=== PATIENT | male | born 1960 | race Caucasian/White ===

== ENCOUNTER 2016-09-06 09:43 | Inpatient (IN) | payer MEDICAID ==
[~2016-09-06 09:43] MED LIST: BACITRACIN 50,000 UNITS/10 ML SYR IRR ONE; BUPIVACAINE/EPI 0.25% 30 ML SDV ONE; CHLORHEXIDINE GLUC HIBICLENS 118 ML BTL TP ONE; SKIN ADHESIVE (DERMABOND) 1 EACH TP ONE; THROMBIN (RECOMBINANT) 5,000 UNIT VIAL TP ONE; ceFAZolin 2 GM/DEXTROSE 100 ML IV ONE
[2016-09-06] MEDS ORDERED: LIDOCAINE 1% 5 ML SDV ONE (10:50)
[2016-09-06] MEDS ORDERED: CEFAZOLIN 2 GM/DEXTROSE/100 ML BAG IV ONE (10:50)
[2016-09-06] MEDS ORDERED: LR 1,000 ML IV ONE (10:53)
[2016-09-06] MEDS ORDERED: LIDOCAINE 1% 5 ML SDV ID PRN (10:53)
[2016-09-06] MEDS ORDERED: ROCURONIUM 50 MG/5 ML VIAL ONE (11:22)
[2016-09-06] MEDS ORDERED: DEXAMETHASONE 4 MG/ML VIAL ONE ×2 (11:22→11:23)
[2016-09-06] MEDS ORDERED: REMIFENTANIL HCL 1 MG VIAL ONE ×2 (11:22→13:09)
[2016-09-06] MEDS ORDERED: PROPOFOL/EMULSION 500 MG/50 ML BOTTLE IV ONE ×2 (11:22→13:09)
[2016-09-06] MEDS ORDERED: METOCLOPRAMIDE 10 MG/2 ML VIAL ONE (11:23)
[2016-09-06] MEDS ORDERED: LIDOCAINE 2% 100 MG/5 ML SYR IVP ONE (11:25)
[2016-09-06] MEDS ORDERED: MIDAZOLAM 2 MG/2 ML VIAL ONE (11:28)
[2016-09-06] MEDS ORDERED: ONDANSETRON DISINTEGRATING 4 MG TAB PO PRN (15:41)
[2016-09-06] MEDS ORDERED: PROCHLORPERAZINE MALEATE 25 MG SUPPR PR PRN (15:41)
[2016-09-06] MEDS ORDERED: POLYETHYLENE GLYCOL 3350 17 GM PKT PO PRN (15:41)
[2016-09-06] MEDS ORDERED: DIAZEPAM 10 MG/2 ML SYR IVP PRN (15:41)
[2016-09-06] MEDS ORDERED: LACTULOSE 20 GM/30 ML UDCUP PO PRN (15:41)
[2016-09-06] MEDS ORDERED: METHOCARBAMOL 750 MG TAB PO PRN (15:41)
[2016-09-06] MEDS ORDERED: ACETAMINOPHEN 325 MG TAB PO PRN (15:41)
[2016-09-06] MEDS ORDERED: diphenhydrAMINE 25 MG CAP PO PRN (15:41)
[2016-09-06] MEDS ORDERED: PROMETHAZINE HCL 25 MG/ML VIAL IVP PRN (15:41)
[2016-09-06] MEDS ORDERED: PROCHLORPERAZINE MALEATE 10 MG TAB PO PRN (15:41)
[2016-09-06] MEDS ORDERED: HYDROCODONE/APAP 10/325 TAB PO PRN (15:41)
[2016-09-06] MEDS ORDERED: DIAZEPAM 5 MG TAB PO PRN (15:41)
[2016-09-06] MEDS ORDERED: MAGNESIUM HYDROXIDE 30 ML UDCUP PO PRN (15:41)
[2016-09-06] MEDS ORDERED: BISACODYL 10 MG SUPP PR PRN (15:41)
[2016-09-06] MEDS ORDERED: ONDANSETRON 4 MG/2 ML VIAL IVP PRN (15:41)
[2016-09-06] MEDS ORDERED: NS W/ 20 KCl/L 1,000 ML IV SCH (15:45)
[2016-09-06] MEDS ORDERED: ONDANSETRON 4 MG/2 ML VIAL ONE ×2 (15:51→15:55)
[2016-09-06] MEDS ORDERED: fentaNYL 100 MCG/2 ML INJ ONE (15:54)
--- NOTE | 2016-09-06 15:54 | POSTOPPROG ---
Post Op Note Date of Operation: 09/06/16 Surgeon: Ashish Soriaon Roll Repairer: Kathie Kim Anesthesiologist: Chen Anesthesia: GET(General Endotracheal) Pre-op Diagnosis: Lumbar stenosis Post-op Diagnosis: same Procedure: L3/4 TLIF with hardware removal L4-S1. Inf/Abcess present in the surg proc area at time of surgery?: No Depth: Organ Space EBL: 300 Drains: Jayme Suero SOAP Progress Note Assessment/Plan: Assessment: Plan: S: Patient waking up in PACU with expected back pain and with nausea. O: VSS: 144/95, po2:100% on NC, Pulse 87 NAD PERRL, EOMI CN II-XII grossly intact BUE/BLE 5/5= Sensation intact to lt touch Incision c/d/i- dressed JPX1- to full suction and functioning A: L3/4 TLIF with hardware removal L4-S1. -Admit to med/surg -optimize pain management -brace to be ordered once up on floor -LSO brace to be worn when up and OOB -Postop x-rays pending -DVT: TEDs, SCDs, Lovenox ok to start 24 hours postop -Please call with any changes in neuro exam 09/06/16 15:51
--- NOTE | 2016-09-06 16:06 | DX ---
Intraoperative Fluoroscopy of the Lumbar Spine Clinical History: 56-year-old male undergoing TLIF at L3-L4. Comparison Study: CT scan of the lumbar spine, dated December 30, 2015. Findings: Dr. Ashish Soriano used 7.68 seconds of fluoroscopy time (exposure dose of 43.21 mGy) during intraoperative fluoroscopy of the lumbar spine. Two spot matrix intraoperative images were acquired, identifying placement of bilateral transpedicular screws at the L3-L4 level and interbody fusion. Th ere is a prominent curvilinear ventral traction spur at the anterior superior L4 centrum. Additionall y, there are two separate 3-D acquired spins were obtained with no images provided. Impression: Intraoperative fluoroscopy during L3-L4 arthrodesis.
[2016-09-06] MEDS ORDERED: PROMETHAZINE HCL 25 MG/ML VIAL ONE (16:23)
[2016-09-06] MEDS: metFORMIN HCL 500 MG TAB PO SCH (18:30)
[2016-09-06] MEDS: oxyCODONE IR 5 MG TAB PO PRN ×2 (19:05→22:54)
[2016-09-06] MEDS: SENNOSIDES/DOCUSATE SODIUM TAB PO SCH (20:18)
[2016-09-06] MEDS: FAMOTIDINE 20 MG TAB PO SCH (20:18)
[2016-09-06] MEDS: morphINE SR 15 MG TAB PO SCH (20:18)
[2016-09-06] MEDS: AMOXICILLIN/CLAVULANATE POT 875/125 MG TAB PO SCH (20:18)
[2016-09-06] MEDS: PREGABALIN 75 MG CAP PO SCH (20:18)
[2016-09-06] MEDS: PRAVASTATIN SODIUM 20 MG TAB PO SCH (20:19)
--- NOTE | 2016-09-06 20:51 | GOP ---
[f rep st] OPERATIVE REPORT DATE OF OPERATION: 09/06/2016 SURGEON: Ashish Soriano MD SODA JERKER: Kathie Kim PA-C ANESTHESIA: General endotracheal. 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 PROCEDURE PERFORMED: 1. Exploration and removal of posterolateral spine hardware L4, L5 and S1. 2. Placement of pedicle screw fixation at L3, and replacement at L4. 3. L3-4 transforaminal lumbar interbody fusion. 4. [place] of local autograft. 5. Use of allograft (bone morphogenic proteins). 6. Interbody cage placement at L3-4. 7. Posterolateral fusion at L3-4. 8. L3 complete laminectomy and medial facetectomy on the left, complete facetectomy on the right. 9. Use of Noosh stereotactic navigation 10. Use of operative microscope FINDINGS: Successful TLIF. SPECIMENS: There were no specimens. ESTIMATED BLOOD LOSS: 350 cc. INDICATIONS: The patient is a 56-year-old man who had a previous L4-S1 fusion in 1990. He presented to clinic with severe bilateral leg pain and signs of neurogenic claudication. A CT myelogram revealed severe stenosis at L3-4 and good fusion mass L4-S1. We therefore scheduled him for an L3-4 TLIF and removal of hardware at the levels below. DESCRIPTION OF PROCEDURE: After informed consent was obtained from the patient , the patient was brought to the operating room, placed in supine position on the operating table. A formal time-out was performed, identifying the patient by name, medical record number, and date of . Preoperative antibiotics were given. Endotracheal tube was placed and general endotracheal anesthesia was smoothly induced. The patient was then turned to the prone position on the Jayme table and all appropriate pressure points were padded and checked. At this point, the low lumbar region was prepped and draped in the normal sterile fashion. The O-arm stereotactic device was brought onto the field and used to perform AP and lateral radiographs, confirming the appropriate level of the incision. The O-arm arm was then moved out of the way and the skin incision was made using a 10 blade. The subcutaneous tissues were dissected using monopolar electrocautery and the plasma blade. The fascia was opened in the midline. The spinous processes were identified and the muscles were taken down laterally. The previous hardware at L4, L5, and S1 was completely exposed. Next, the locking screws were removed, the connectors to the shanita were loosened, the rods were removed bilaterally, and each of the pedicle screws at L4, L5 and S1 were removed completely. At L4 on the left, a Medtronic Solera 6.5 x 45 mm screw was replaced into the screw hole and on the right side a 6.5 x 45 Medtronic Solera screw was placed into the screw hole. At this point, the O- arm was then used to perform a stereotactic spin, showing the appropriate L3-4 level. The screws at L4 bilaterally were completely within the pedicle and in good placement. Next, we identified, using normal anatomic landmarks, the entry points for pedicle screws at L3. The stereotactic navigation was also used to tap with a 5.5-6.5 mm tap and then we placed under direct stereotactic vision 6.5 x 50 mm Solera screws bilaterally at L3. Repeat O-arm scan was obtained, showing the screws were in excellent placement. All the screws were then stimulated and all of them stimulated over the sense of the threshold. At this point, since the screws were placed, the high-speed drill was used to drill down the lamina of L3. Once the lamina was drilled, thin Kerrison punches were used to perform a full laminectomy at L3 bilaterally. There was extensive ligamentum flavum hypertrophy and actually the ligament flavum was completely degenerative in the lateral recess with severe compression laterally and centrally. A complete decompression of the thecal sac was performed at this level. At this point, distraction on the right side of the pedicle screws was placed. Complete facetectomy on the right side at L3-4 was performed and the disk space was identified. At this point, the operating microscope was brought onto the field and the remainder of the procedure was performed under high-power magnification. The nerve root was retracted medially and the disk space was then entered using an 11 blade. Using curette and beth, a complete diskectomy at L3-4 was performed and the cartilaginous endplates were removed. Once the endplates were fully prepared, this space was sized for an 8 x 23 mm Medtronic Elevate cage. This cage was packed with autograft and allograft BMP. Into the disk space, we placed some autograft and another small piece of BMP and pushed that toward the left lateral side. The Elevate cage was then placed and a lateral radiograph was performed, identifying correct placement. The cage was then opened fully to its 12 mm full open size. Again, the lateral radiograph performed confirmed good hardware placement. At this point, the wound was copiously irrigated. The lateral edge of the facet on the left side was drilled down and decorticated and this was covered with autograft and allograft BMP. The 40 mm titanium rods were then placed between the screw heads and locked down with cap screws, which were finally torqued and tightened. At this point, again, the wound was copiously irrigated using bacitracin irrigation. All bleeding was controlled with bipolar electrocautery. A NOÉ drain was placed into the subfascial space. The deep lumbar fascia was then closed using interrupted 0 Vicryl. The superficial fascia was closed using interrupted 0 Vicryl. The deep dermis was closed using interrupted 2-0 Vicryl and the skin was covered with Dermabond. The drain was connected to a sterile drainage system. The patient was turned back into the supine position, where he was extubated. He was transferred to the PACU in stable condition. There were no operative complications. I was scrubbed and present for the entire procedure and performed the procedure myself. FLUIDS REPLACED: Per the Anesthesia record. /[id number]/MODL MTDD
[2016-09-06] MEDS ORDERED: NON-FORMULARY NEW DRUG (Simvastatin [Zocor] 10 MG) PO SCH (21:00)
[2016-09-06] MEDS ORDERED: NON-FORMULARY NEW DRUG (Ranitidine Hcl [Zantac] 150 MG) PO SCH (21:00)
[2016-09-07] MEDS: oxyCODONE IR 5 MG TAB PO PRN ×4 (03:12→16:44)
--- NOTE | 2016-09-07 07:38 | NEUSURGPN ---
Assessment/Plan: A: 56 yo M POD#1 s/p L3/4 TLIF with hardware removal L4-S1. Plan: -PT/OT -Brace to be delivered today, to be worn when OOB -TEDs, SCDs, lovenox -Pain management - cont current regimen -Post op xrays pending -Continue NOÉ drain -[facility] is out -D/w Dr Soriano -Call NS with any issues Subjective: Pt resting in bed, states he is tolerating pain meds better now that he is taking them with food Objective: AAOx3 NAD VSS MAEx4 Motor 5/5 BLE Incision dressed JPx1 +LT Urinary Catheter in Place: No Catheter Insertion Date: 09/06/16 - Physician Discussed Patient with : Bo Neurosurgery Physical Exam - Vitals, I&O, Labs I and O 09/06/16 09/07/16 09/08/16 05:59 05:59 05:59 Intake Total 3200 Output Total 3415 Balance -215 Weight 86.183 kg Intake: Oral (ml) 1650 IV Intake (ml) 1550 Output: Urine (ml) 2525 Catheter 2525 Estimated Blood Loss (ml) 350 Wound Drainage (ml) 540 Left Back Jayme Suero 540 Vital Signs Temp Pulse Resp BP Pulse Ox 36.7 C 63 16 121/79 H 97 09/07/16 04:10 09/07/16 04:10 09/07/16 04:10 09/07/16 04:10 09/07/16 04:10 ICD10 Worksheet Patient Problems: Problems Problem Status Diagnosed Degenerative lumbar disc Acute - ICD10 Problem Qualifiers (1) Degenerative lumbar disc
[2016-09-07] MEDS: FAMOTIDINE 20 MG TAB PO SCH ×2 (08:14→21:43)
[2016-09-07] MEDS: PREGABALIN 75 MG CAP PO SCH ×2 (08:14→21:43)
[2016-09-07] MEDS: LOSARTAN POTASSIUM 50 MG TAB PO SCH (08:15)
[2016-09-07] MEDS: GLIMEPIRIDE 1 MG TAB PO SCH (08:15)
[2016-09-07] MEDS: AMOXICILLIN/CLAVULANATE POT 875/125 MG TAB PO SCH ×2 (08:15→21:44)
[2016-09-07] MEDS: morphINE SR 15 MG TAB PO SCH ×2 (08:15→21:42)
[2016-09-07] MEDS: SENNOSIDES/DOCUSATE SODIUM TAB PO SCH ×2 (08:16→21:43)
[2016-09-07] MEDS: metFORMIN HCL 500 MG TAB PO SCH ×2 (08:16→18:29)
[2016-09-07] MEDS: ENOXAPARIN 40 MG/0.4 ML SYR SC SCH (16:45)
--- NOTE | 2016-09-07 17:54 | DX ---
Lumbar spine, 2 views History: Postoperative hardware evaluation. Comparison: Intraoperative fluoroscopy of September 06, 2016, CT lumbar myelogram from December 30, 2015. Findings: Bilateral transpedicular screw and shanita fusion is present at L3-L4 with hardware in expected position. L3 laminectomy is noted. Intervertebral graft hardware is present at L3-L4. Solid posterio r fusion is noted from L4 through S1. The L5-S1 disk space appears fused. Mild vertebral spondylosis throughout the lumbar spine is stable. A drain overlies the lower lumbar spine. Impression: L3 through L4 fusion with no visible complication.
[2016-09-07] MEDS: PRAVASTATIN SODIUM 20 MG TAB PO SCH (21:43)
--- NOTE | 2016-09-08 07:38 | NEUSURGPN ---
Date of Surgery: 09/06/16 Post Op Day: 2 Assessment/Plan: Assessment: 56 yo M POD#2 s/p L3/4 TLIF with hardware removal L4-S1 Plan: -PT/OT-CPM -Brace to be worn when OOB -TEDs, SCDs, lovenox -Pain management - cont current regimen -Post op xrays look good -Continue NOÉ drain as still productive -[facility] is out -pt with n/v-will need to stay until this resolves -D/w Dr Soriano -Call NS with any issues Subjective: Awake and alert. NAD. No f/c. Pt with expected lower back pain. No selby/neck/ chest/gu complaints. Objective: AAOx3 NAD MAEx4 Motor 5/5 BLE Incision dressed JPx1 +LT Neuro Check Frequency: per routine Urinary Catheter in Place: No Catheter Insertion Date: 09/06/16 - Physician Discussed Patient with : Bo Neurosurgery Physical Exam - Vitals, I&O, Labs I and O 09/07/16 09/08/16 09/09/16 05:59 05:59 05:59 Intake Total 3200 1630 Output Total 3415 2635 Balance -215 -1005 Weight 86.183 kg Intake: Oral (ml) 1650 1630 IV Intake (ml) 1550 Output: Urine (ml) 2525 2400 Catheter 2525 Urinal 2400 Estimated Blood Loss (ml) 350 Wound Drainage (ml) 540 235 Left Back Jayme Suero 540 235 Other: Intake Quantity Yes Sufficient Number of Voids Urinal 2 Vital Signs Temp Pulse Resp BP Pulse Ox 36.8 C 76 14 118/70 93 09/08/16 04:54 09/08/16 04:54 09/08/16 04:54 09/08/16 04:54 09/08/16 04:54 ICD10 Worksheet Patient Problems: Problems Problem Status Diagnosed Degenerative lumbar disc Acute
[2016-09-08] MEDS: metFORMIN HCL 500 MG TAB PO SCH ×2 (09:07→18:01)
[2016-09-08] MEDS: ENOXAPARIN 40 MG/0.4 ML SYR SC SCH (09:07)
[2016-09-08] MEDS: PREGABALIN 75 MG CAP PO SCH ×2 (09:08→20:42)
[2016-09-08] MEDS: GLIMEPIRIDE 1 MG TAB PO SCH (09:08)
[2016-09-08] MEDS: LOSARTAN POTASSIUM 50 MG TAB PO SCH (09:08)
[2016-09-08] MEDS: morphINE SR 15 MG TAB PO SCH ×2 (09:08→20:42)
[2016-09-08] MEDS: SENNOSIDES/DOCUSATE SODIUM TAB PO SCH ×2 (09:09→20:43)
[2016-09-08] MEDS: AMOXICILLIN/CLAVULANATE POT 875/125 MG TAB PO SCH ×2 (09:10→20:42)
[2016-09-08] MEDS: FAMOTIDINE 20 MG TAB PO SCH ×2 (09:10→20:42)
[2016-09-08] MEDS: oxyCODONE IR 5 MG TAB PO PRN ×3 (14:13→23:58)
[2016-09-08] MEDS: PRAVASTATIN SODIUM 20 MG TAB PO SCH (20:42)
[2016-09-09 08:00] VITALS: RESP 16
--- NOTE | 2016-09-09 08:14 | NEUSURGPN ---
Assessment/Plan: Assessment: 56 yo M POD#3 s/p L3/4 TLIF with hardware removal L4-S1 Plan: -PT/OT-CPM -Brace to be worn when OOB -TEDs, SCDs, lovenox -Pain management - cont current regimen- oxycodone and robaxin -Post op xrays look good -Remove NOÉ -N/v improving, no BM -May shower today, short 5-7 min no scrubbing incision -D/w Dr Soriano -Dispo- could dispo later today if passes therapies, has BM. If not today, tomorrow -Call NS with any issues Subjective: Patient doing well, pain improving. Nausea improving. No BM in a few days. Able to ambulate around [place] with PT yesterday. Objective: AAOx3 NAD Motor 5/5 BLE Incision c/d/i JPx1 serosang in bulb +LT 09/06/16 15:51 Catheter Insertion Date: 09/06/16 - Physician Discussed Patient with : Bo Neurosurgery Physical Exam - Vitals, I&O, Labs I and O 09/08/16 09/09/16 09/10/16 05:59 05:59 05:59 Intake Total 1630 750 Output Total 2635 2014 Balance -1005 -1265 Intake: Oral (ml) 1630 750 Output: Urine (ml) 2400 1625 Urinal 2400 1625 Emesis (ml) 250 Wound Drainage (ml) 235 140 Left Back Jayme Suero 235 140 Other: Intake Quantity Yes Sufficient Number of Voids Urinal 2 1 Vital Signs Temp Pulse Resp BP Pulse Ox 36.8 C 66 16 134/76 H 93 09/09/16 08:00 09/09/16 08:00 09/09/16 08:00 09/09/16 08:00 09/09/16 08:00 ICD10 Worksheet Patient Problems: Problems Problem Status Diagnosed Degenerative lumbar disc Acute
[2016-09-09] MEDS: PREGABALIN 75 MG CAP PO SCH ×2 (09:10→20:16)
[2016-09-09] MEDS: AMOXICILLIN/CLAVULANATE POT 875/125 MG TAB PO SCH ×2 (09:11→20:16)
[2016-09-09] MEDS: SENNOSIDES/DOCUSATE SODIUM TAB PO SCH ×2 (09:11→20:16)
[2016-09-09] MEDS: morphINE SR 15 MG TAB PO SCH ×2 (09:11→20:16)
[2016-09-09] MEDS: LOSARTAN POTASSIUM 50 MG TAB PO SCH (09:12)
[2016-09-09] MEDS: FAMOTIDINE 20 MG TAB PO SCH ×2 (09:12→20:16)
[2016-09-09] MEDS: metFORMIN HCL 500 MG TAB PO SCH ×2 (09:12→18:04)
[2016-09-09] MEDS: GLIMEPIRIDE 1 MG TAB PO SCH (09:13)
[2016-09-09] MEDS: ENOXAPARIN 40 MG/0.4 ML SYR SC SCH (09:14)
[2016-09-09] MEDS: oxyCODONE IR 5 MG TAB PO PRN ×2 (09:20→18:04)
[2016-09-09] MEDS: PRAVASTATIN SODIUM 20 MG TAB PO SCH (20:17)
[2016-09-10] MEDS: oxyCODONE IR 5 MG TAB PO PRN ×2 (08:45→16:24)
[2016-09-10] MEDS: PREGABALIN 75 MG CAP PO SCH (08:46)
[2016-09-10] MEDS: SENNOSIDES/DOCUSATE SODIUM TAB PO SCH (08:46)
[2016-09-10] MEDS: FAMOTIDINE 20 MG TAB PO SCH (08:47)
[2016-09-10] MEDS: GLIMEPIRIDE 1 MG TAB PO SCH (08:47)
[2016-09-10] MEDS: ENOXAPARIN 40 MG/0.4 ML SYR SC SCH (08:47)
[2016-09-10] MEDS: metFORMIN HCL 500 MG TAB PO SCH (08:47)
[2016-09-10] MEDS: AMOXICILLIN/CLAVULANATE POT 875/125 MG TAB PO SCH (08:47)
[2016-09-10] MEDS: morphINE SR 15 MG TAB PO SCH (08:48)
[2016-09-10] MEDS: LOSARTAN POTASSIUM 50 MG TAB PO SCH (08:48)
[2016-09-10 16:02] VITALS: BP 139/76; PULSE 69; TEMP 98.3
--- NOTE | 2016-09-10 16:07 | NEUSURGPN ---
Assessment/Plan: Assessment: 56 yo M POD#4 s/p L3/4 TLIF with hardware removal L4-S1 Plan: -PT/OT-CPM -Brace to be worn when OOB -TEDs, SCDs, lovenox -Pain management - cont current regimen- oxycodone and robaxin -Post op xrays look good -had BM per chart -OK to shower -D/w Dr Soriano -Dispo- DC to home today -Call NS with any issues Subjective: Pt resting in bed, feels ready to go home Objective: AAOx3 NAD VSS MAEx4 Motor 5/5 BLE Incision cdi +LT Urinary Catheter in Place: No Catheter Insertion Date: 09/06/16 - Physician Discussed Patient with : Bo Neurosurgery Physical Exam - Vitals, I&O, Labs I and O 09/09/16 09/10/16 09/11/16 05:59 05:59 05:59 Intake Total 750 750 Output Total 2015 950 Balance -1265 -200 Intake: Oral (ml) 750 750 Output: Urine (ml) 1625 950 Urinal 1625 950 Emesis (ml) 250 Wound Drainage (ml) 140 Left Back Jayme Suero 140 Other: Intake Quantity Yes Sufficient Number of Voids Urinal 1 1 Number of Stools Urinal 1 Vital Signs Temp Pulse Resp BP Pulse Ox 36.8 C 69 16 139/76 H 90 L 09/10/16 16:00 09/10/16 16:00 09/10/16 16:00 09/10/16 16:00 09/10/16 16:00 ICD10 Worksheet Patient Problems: Problems Problem Status Diagnosed Degenerative lumbar disc Acute - ICD10 Problem Qualifiers (1) Degenerative lumbar disc
--- NOTE | 2016-09-10 16:12 | PDIAF ---
- Diagnosis Diagnosis: Lumbar DJD/Stenosis. status post lumbar fusion L3/4 Code Status: Full Code - Medication Management Discharge Medications: Medications to Continue on Transfer Glimepiride [Amaryl 1 MG (*)] 1 mg PO DAILY 08/17/16 [Last Taken 09/04/16] Losartan Potassium [Cozaar 50 mg (*)] 100 mg PO DAILY 08/17/16 [Last Taken 09/04] Pregabalin [Lyrica 75mg (*)] 150 mg PO BID 08/17/16 [Last Taken 09/04/16] Ranitidine HCl [Zantac] 150 mg PO BID 08/17/16 [Last Taken 09/02/16] Simvastatin [Zocor] 10 mg PO HS 08/17/16 [Last Taken 09/04/16] metFORMIN HCL [Glucophage 500 mg (*)] 1,000 mg PO BIDMEAL 08/17/16 [Last Taken 09/04/16] Amoxicillin/Potassium Clav [Amox-Clav 875-125 mg Tablet] 1 tab PO BID 09/06/16 [ Last Taken 09/06/16 07:00] Methocarbamol [Robaxin 750 mg (*)] 750 mg PO QID PRN #60 tab 09/10/16 [Last Taken Unknown] Polyethylene Glycol 3350 [Miralax 17 gm (*)] 17 gm PO DAILY PRN #0 pkt 09/10/16 [Last Taken Unknown] Sennosides/Docusate Sodium [Senokot-S] 1 - 2 tab PO BID #0 tab 09/10/16 [Last Taken Unknown] oxyCODONE IR [Oxycodone Ir (*)] 5 - 15 mg PO Q4HRS PRN #60 tab 09/10/16 [Last Taken Unknown] Discharge Medications: Refer to the Discharge Home Medication list for PRN reason. - Orders Services needed: Physical Therapy, Occupational Therapy Oxygen: Home Oxygen Diet Recommendation: no restrictions on diet Diet Texture: Regular Texture Diet Wound Care Instructions: ok to shower POD #3. Keep incision/dressing dry. OK to remove dressing POD #5 - Follow Up Care Current Providers and Referrals: Terrence Sharpe MD [Primary Care Provider] -
[2016-09-10 16:27] VITALS: O2SAT 85
== END 2016-09-10 17:50 | disposition home health service (06) | DRG 460 ==
LOC: F3E 09:43 → F3N 17:03
PROVIDERS: ADMIT Neurological Surgery; ATTEND Neurological Surgery
PROC: 0SB20ZZ Excision of Lumbar Vertebral Disc, Open Approach (ICD-10-PCS; principal; 2016-09-06 11:45)
PROC: 3E0U0GB Introduction of Recombinant Bone Morphogenetic Protein into Joints, Open Approach (ICD-10-PCS; principal; 2016-09-06 11:45)
PROC: 0SG10AJ Fusion of 2 or more Lumbar Vertebral Joints with Interbody Fusion Device, Posterior Approach, Anterior Column, Open Approach (ICD-10-PCS; principal; 2016-09-06 11:45)
PROC: 01NB0ZZ Release Lumbar Nerve, Open Approach (ICD-10-PCS; principal; 2016-09-06 11:45)
PROC: 0QP004Z Removal of Internal Fixation Device from Lumbar Vertebra, Open Approach (ICD-10-PCS; principal; 2016-09-06 11:45)
DX: M48.06 Spinal stenosis, lumbar region (principal); Z98.1 Arthrodesis status
CPT/HCPCS: 97116-GP; 97161-GP; 97166-GO; 97530-GO; 97530-GP; 97535-GO; C1713; J0690; J1100; J1650; J2001; J2250; J2405; J2550; J2704; J2765; J3010